=== PATIENT | female | born 1965 ===

== ENCOUNTER 2022-03-02 16:44 | Emergency (ER) | payer MEDICAID ==
[2022-03-02] MEDS ORDERED: Sodium Chloride 0.9% 1,000 ML IV ONE (19:12)
[2022-03-02] MEDS ORDERED: Ketorolac 30 MG/ML SDV IVPUSH ONE (19:12)
[2022-03-02] MEDS ORDERED: Sodium Chloride 0.9% 10 ML Syringe FLUSH PRN (19:12)
== END 2022-03-02 21:20 | disposition home or self-care (01) ==
LOC: JD.ED 16:44
DX: R10.9 Unspecified abdominal pain (principal)
CPT/HCPCS: 36415; 74176; 80053; 81003; 83735; 85025; 96374; 99284; J1885; J7030; 99285